=== PATIENT | male | born 1985 | race Caucasian/White ===

== ENCOUNTER 2019-11-16 18:26 | Emergency (ER) | payer BC, OTHER ==
[2019-11-16 18:47] VITALS: BP 149/91; PULSE 77; RESP 18; TEMP 98.5
--- NOTE | 2019-11-16 19:06 | ED ---
General Adult HPI - General Chief complaint: Skin/Abscess/Foreign Body Stated complaint: Poss Infection in Hand Time Seen by Provider: 11/16/19 18:49 Source: patient Mode of arrival: ambulatory Limitations: no limitations - History of Present Illness Initial comments: Patient is a 34-year-old male presenting to the emergency department with a chief complaint of a infection of the right hand. Patient states that he typically has recurrent sialitis infections over the last year. Patient reports the most recent infection began yesterday is located in the posterior aspect of the right hand. Patient does report some itching but denies any pain in the region. He has full range of motion the hand. Denies any emesis or chills. Denies any skin discoloration aside from mild erythema. Denies any drainage from the reason. Denies taking medication to alleviate the symptoms. - Related Data Home Medications Medication Instructions Recorded Confirmed Acetaminophen Tab [Tylenol] 1,300 mg PO DAILY 10/12/16 10/12/16 Previous Rx's Medication Instructions Recorded Cephalexin [Keflex] 500 mg PO Q12HR 10 Days cap 10/12/16 Ibuprofen [Motrin] 800 mg PO Q6HR PRN #30 tab 10/12/16 Cephalexin [Keflex] 500 mg PO TID 3 Days #21 cap 11/16/19 Allergies Allergy/AdvReac Type Severity Reaction Status Date / Time No Known Allergies Allergy Verified 11/16/19 18:44 Review of Systems ROS Statement: Those systems with pertinent positive or pertinent negative responses have been documented in the HPI. ROS Other: All systems not noted in ROS Statement are negative. Past Medical History Additional Past Medical History / Comment(s): plantar fasciatis left foot History of Any Multi-Drug Resistant Organisms: None Reported Past Surgical History: Adenoidectomy, Appendectomy, Tonsillectomy Past Psychological History: No Psychological Hx Reported Smoking Status: Former smoker Past Alcohol Use History: Rare Past Drug Use History: None Reported General Exam Limitations: no limitations General appearance: alert, in no apparent distress Head exam: Present: atraumatic, normocephalic, normal inspection Eye exam: Present: normal appearance Pupils: Present: normal accommodation ENT exam: Present: normal exam Neck exam: Present: normal inspection, full ROM Respiratory exam: Present: normal lung sounds bilaterally Cardiovascular Exam: Present: regular rate, normal rhythm, normal heart sounds Extremities exam: Present: full ROM, normal capillary refill, other (+2 ulnar and radial pulses bilaterally.). Absent: normal inspection (Regional erythema measuring 2 cm x 3 cm on the posterior aspect of her right hand. Very mild swelling in the region. No signs of abscess.), tenderness Back exam: Present: normal inspection, full ROM Neurological exam: Present: alert, oriented X3 Psychiatric exam: Present: normal affect, normal mood Skin exam: Present: warm, dry, intact, normal color Course Vital Signs 11/16/19 18:44 Temperature 98.5 F Pulse Rate 77 Respiratory 18 Rate Blood Pressure 149/91 O2 Sat by Pulse 96 Oximetry Medical Decision Making - Medical Decision Making patient is a 34-year-old male presenting to the emergency department with a chief complaint of a hand infection. On exam patient does have cellulitic changes in the posterior aspect of the right hand. This appears to be cellulitis. Patient will be treated with Keflex. No fevers chills. No signs of an abscess. Strict return parameters were thoroughly discussed the patient was understanding and agreeable. Case discussed with physician. Disposition Clinical Impression: Cellulitis of hand excluding fingers Disposition: HOME SELF-CARE Condition: Stable Instructions (If sedation given, give patient instructions): Cellulitis (DC) Additional Instructions: Take prescribed medication as directed. Please follow with primary care. Please return to emergency department if symptoms worsen. Prescriptions: Cephalexin [Keflex] 500 mg PO TID 3 Days #21 cap Is patient prescribed a controlled substance at d/c from ED?: No Referrals: Rich Randall MD [Primary Care Provider] - 1-2 days Time of Disposition: 19:05
== END 2019-11-16 19:15 | disposition home or self-care (01) ==
LOC: EC 18:26
DX: L03.113 Cellulitis of right upper limb (principal); Z87.891 Personal history of nicotine dependence
CPT/HCPCS: 99283

== ENCOUNTER 2021-03-01 23:53 | Emergency (ER) | payer BC ==
[2021-03-02 00:15] VITALS: BP 132/88; PULSE 77; RESP 20; TEMP 98
[2021-03-02] MEDS ORDERED: DICLOXACILLIN 250 MG CAPSULE PO STA (00:57)
--- NOTE | 2021-03-02 00:59 | ED ---
Skin/Abscess/FB HPI - General Chief complaint: Skin/Abscess/Foreign Body Stated complaint: Possible allergic reaction Time Seen by Provider: 03/02/21 00:40 Source: patient Mode of arrival: ambulatory Limitations: no limitations - History of Present Illness Initial comments: 35-year-old male patient presents to the emergency department today for evaluation of redness and swelling to the right upper arm. Patient received [employer] vaccine on 02/26/2021, symptoms started a couple of days ago but the redness has spread. States he also has a patch of redness and swelling to the right dorsal hand over the first MTP joint. States this is painful. Denies any fever or chills. Denies lip, tongue, or throat swelling. Denies rash elsewhere. Patient denies any recent cough, shortness of breath, chest pain, abdominal pain, nausea, vomiting, diarrhea, constipation, back pain, numbness, tingling, dizziness, weakness, hematuria, dysuria, urinary urgency, urinary frequency, headache, visual changes, or any other complaints. - Related Data Home Medications Medication Instructions Recorded Confirmed Acetaminophen Tab [Tylenol] 1,300 mg PO DAILY 10/12/16 10/12/16 Previous Rx's Medication Instructions Recorded Cephalexin [Keflex] 500 mg PO Q12HR 10 Days cap 10/12/16 Ibuprofen [Motrin] 800 mg PO Q6HR PRN #30 tab 10/12/16 Cephalexin [Keflex] 500 mg PO TID 3 Days #21 cap 11/16/19 Dicloxacillin [Dynapen] 500 mg PO Q6H #40 capsule 03/02/21 Allergies Allergy/AdvReac Type Severity Reaction Status Date / Time No Known Allergies Allergy Verified 03/02/21 00:15 Review of Systems ROS Statement: Those systems with pertinent positive or pertinent negative responses have been documented in the HPI. ROS Other: All systems not noted in ROS Statement are negative. Past Medical History Additional Past Medical History / Comment(s): plantar fasciatis left foot History of Any Multi-Drug Resistant Organisms: None Reported Past Surgical History: Adenoidectomy, Appendectomy, Tonsillectomy Past Psychological History: No Psychological Hx Reported Smoking Status: Never smoker Past Alcohol Use History: Rare Past Drug Use History: None Reported General Exam Limitations: no limitations General appearance: alert, in no apparent distress, other (This is a well- developed, well-nourished adult male patient in no acute distress.) ENT exam: Present: normal exam, normal oropharynx, mucous membranes moist Respiratory exam: Present: normal lung sounds bilaterally. Absent: respiratory distress, wheezes, rales, rhonchi, stridor Cardiovascular Exam: Present: regular rate, normal rhythm, normal heart sounds. Absent: systolic murmur, diastolic murmur, rubs, gallop, clicks Extremities exam: Present: full ROM, normal capillary refill, other (There is patchy erythema and swelling noted over the right upper arm. There is also erythema and swelling noted over the right first MTP joint on the right hand. Skin is otherwise pink, warm, dry. Cap refill less than 3 seconds. Radial pulses 2+.). Absent: normal inspection, tenderness, pedal edema, joint swelling, calf tenderness Neurological exam: Present: alert, oriented X3, CN II-XII intact Psychiatric exam: Present: normal affect, normal mood Skin exam: Present: warm, dry, intact, normal color, rash Course Vital Signs 03/02/21 00:11 Temperature 98.0 F Pulse Rate 77 Respiratory 20 Rate Blood Pressure 132/88 O2 Sat by Pulse 98 Oximetry Medical Decision Making - Medical Decision Making 35-year-old male patient presents to the emergency department today for evaluation of rash to the right arm. Physical examination did reveal a patch of erythema to the right upper arm at his vaccine site. This is a reaction to the vaccine. He denies any pain or itching to the area. He has no lip or tongue swelling. I did discuss how providing steroids at this time would decrease his immune reaction to the vaccine and possibly make it less effective. He is comfortable not receiving treatment for this and will return if it worsens. The area of redness and swelling over his right MTP joint is more concerning for possible bursitis versus cellulitis of we will treat with dicloxacillin. He'll be discharged follow up with his primary care physician for recheck in 1-2 days. Return parameters discussed in detail. He verbalizes understanding and agrees with this plan. My attending physician is Dr. Bay. Disposition Clinical Impression: Local reaction to COVID-19 vaccine, Bursitis, right hand Disposition: HOME SELF-CARE Condition: Good Instructions (If sedation given, give patient instructions): Cellulitis (ED) Additional Instructions: Complete antibiotic prescription in full. Follow-up with the primary care sreekanth nolasco for recheck in 1-2 days. Return to the emergency department for any new, worsening, or concerning symptoms. Prescriptions: Dicloxacillin [Dynapen] 500 mg PO Q6H #40 capsule Is patient prescribed a controlled substance at d/c from ED?: No Referrals: Rich Randall MD [Primary Care Provider] - 1-2 days Time of Disposition: 00:59
== END 2021-03-02 01:18 | disposition home or self-care (01) ==
LOC: EC 23:53
DX: T88.1XXA Other complications following immunization, not elsewhere classified, initial encounter (principal); M70.11 Bursitis, right hand
CPT/HCPCS: 99283

== ENCOUNTER → 2024-02-07 | Outpatient (CLI) | payer BC ==
--- NOTE | 2024-02-08 09:43 | CA ---
Transthoracic Echo Report Name: Yony Patiño Age: 38 Gender: M : 1985 Exam Date: 02/07/2024 17:01 Exam Location: [facility] Ht (in): 70 Wt (lb): 261 Ordering Physician: Tyson Victor DO Attending/Referring Phys: Welding Engineer Ariadne Amaro RDCS Procedure CPT: Indications: I10 HYPERTENSION Cardiac Hx: Technical Quality: Contrast 1: Total Dose (mL): Contrast 2: Total Dose (mL): MEASUREMENTS (Male / Female) Normal Values 2D ECHO LV Diastolic Diameter PLAX 5.2 cm 4.2 - 5.9 / 3.9 - 5.3 cm LV Systolic Diameter PLAX 3.0 cm IVS Diastolic Thickness 1.2 cm 0.6 - 1.0 / 0.6 - 0.9 cm LVPW Diastolic Thickness 0.6 cm 0.6 - 1.0 / 0.6 - 0.9 cm LV Relative Wall Thickness 0.4 LVOT Diameter 2.6 cm Aortic Root Diameter 4.0 cm LA Systolic Diameter LX 3.7 cm 3.0 - 4.0 / 2.7 - 3.8 cm LV Diastolic Volume MOD BP 100.0 cm??? 67 - 155 / 56 - 104 cm??? LV Systolic Volume MOD BP 58.3 cm??? 22 - 58 / 19 - 49 cm??? LV Ejection Fraction MOD BP 41.7 % >= 55 % LV Diastolic Volume MOD 4C 118.7 cm??? LV Systolic Volume MOD 4C 89.2 cm??? LV Ejection Fraction MOD 4C 24.8 % LV Diastolic Length 4C 9.6 cm LV Systolic Length 4C 8.2 cm LV Diastolic Volume MOD 2C 85.4 cm??? LV Systolic Volume MOD 2C 38.1 cm??? LV Ejection Fraction MOD 2C 55.4 % LV Diastolic Length 2C 9.7 cm LV Systolic Length 2C 8.2 cm LA Volume 59.2 cm??? 18 - 58 / 22 - 52 cm??? LA Volume Index 24.0 cm???/m??? 16 - 28 cm???/m??? DOPPLER AV Peak Velocity 119.7 cm/s AV Peak Gradient 5.7 mmHg AV Mean Velocity 94.7 cm/s AV Mean Gradient 3.8 mmHg AV Velocity Time Integral 21.4 cm LVOT Peak Velocity 111.8 cm/s LVOT Peak Gradient 5.0 mmHg LVOT Velocity Time Integral 24.1 cm LVOT Stroke Volume 125.8 cm??? LVOT Stroke Volume Index 53.8 ml/m??? AV Area Cont Eq vti 5.9 cm??? AV Area Cont Eq pk 4.9 cm??? MV Area PHT 3.7 cm??? MR Peak Velocity 490.4 cm/s MR Peak Gradient 96.2 mmHg Mitral E Point Velocity 93.2 cm/s Mitral A Point Velocity 79.5 cm/s Mitral E to A Ratio 1.2 MV Deceleration Time 206.7 ms PV Peak Velocity 95.8 cm/s PV Peak Gradient 3.7 mmHg FINDINGS Left Ventricle Left ventricular ejection fraction is estimated at 55-60 %. Mildly increased septal wall thickness. Normal left ventricular systolic function. No obvious regional wall motion abnormalities. Right Ventricle Normal right ventricular size. Right Atrium Normal right atrial size. Left Atrium Mildly increased left atrial volume. Mitral Valve Mild mitral regurgitation. Aortic Valve No aortic regurgitation. Tricuspid Valve Trace to mild tricuspid regurgitation. Pulmonic Valve No pulmonic regurgitation. Pericardium No pericardial effusion. Aorta Normal size aortic root. CONCLUSIONS Left ventricular ejection fraction is estimated at 55-60 %. No obvious regional wall motion abnormalities. Mild left atrial dilatation Mild mitral regurgitation No pericardial effusion No prior echo to compare with in database Previewed by: Dr Vladimir Pandey (Electronically Signed) Final Date: 08 February 2024 09:42
== END | disposition home or self-care (01) ==
LOC: RADECHMAIN 16:22
PROVIDERS: ATTEND Internal Medicine
DX: I34.0 Nonrheumatic mitral (valve) insufficiency (principal); I11.9 Hypertensive heart disease without heart failure
CPT/HCPCS: 93306

== ENCOUNTER → 2024-03-24 | Outpatient (CLI) | payer BC ==
[2024-03-24 14:27] LABS: Basophils # (A) 0.04 X 10*3/uL (0.00-0.10); Basophils % (A) 0.7 %; Eosinophils % (A) 5.3 %; HCT 42.5 % (39.6-50.0); HGB 15.1 g/dL (13.0-17.0); Lymphocytes # (A) 2.31 X 10*3/uL (0.90-5.00); Lymphocytes % (A) 40.9 %; MCH 31.4 pg (27.0-32.0); MCHC 35.5 g/dL (32.0-37.0); MCV 88.4 FL (80.0-97.0); Mean Platelet Volume 10.1 FL (9.5-12.2); Monocytes # (A) 0.21 X 10*3/uL (0.20-1.00); Monocytes % (A) 3.7 %; NRBC Per 100 WBC 0 X 10*3/uL (0.00-0.01); Neutrophils # (A) 2.78 X 10*3/uL (1.80-7.70); Neutrophils % (A) 49.2 %; Platelet Count 168 X 10*3/uL (140-440); RBC 4.81 X 10*6/uL (4.40-5.60); RDW 12.1 % (11.5-14.5); WBC 5.65 X 10*3/uL (4.50-10.00)
[2024-03-24 16:14] LABS: ALT 27 U/L (10-49); AST 22 U/L (14-35); Albumin 4.6 g/dL (3.8-4.9); Albumin/Globulin Ratio 1.64 Ratio (1.60-3.17); Alkaline Phosphatase 79 U/L (41-126); Blood Urea Nitrogen 21.2 mg/dL (9.0-27.0); Calcium 9.4 mg/dL (8.7-10.3); Carbon Dioxide 27.7 mmol/L (21.6-31.8); Chloride 105 mmol/L (96-109); Chol/HDL Ratio 6.26 Ratio; Globulin 2.8 g/dL (1.6-3.3); Glucose 94 mg/dL (70-110); Potassium 4.3 mmol/L (3.5-5.5); Sodium 143 mmol/L (135-145); Total Bilirubin 0.3 mg/dL (0.3-1.2); Total Protein 7.4 g/dL (6.2-8.2); Uric Acid 6.6 mg/dL (3.7-8.7)
== END | disposition home or self-care (01) ==
LOC: LABWHC1 11:15
PROVIDERS: ATTEND Internal Medicine
DX: Z00.00 Encounter for general adult medical examination without abnormal findings (principal); Z11.59 Encounter for screening for other viral diseases; I10 Essential (primary) hypertension; M21.611 Bunion of right foot
CPT/HCPCS: 36415; 80053; 80061; 82088; 82533; 83721; 84443; 84550; 85025; 86803